=== PATIENT | female | born 1965 | race Hispanic/Latino ===

== ENCOUNTER 2018-01-23 12:38 | Emergency (ER) | payer OTHER ==
[2018-01-23] MEDS ORDERED: ONDANSETRON HCL 4 MG/2 ML VIAL ONE (12:52)
[2018-01-23] MEDS ORDERED: KETOROLAC TROMETHAMINE 15MG/ML ONE (12:53)
[2018-01-23] MEDS ORDERED: DICYCLOMINE HCL 10 MG/ML 2ML AMP IM ONE (12:53)
[2018-01-23] MEDS ORDERED: SODIUM CHLORIDE 0.9% 1000ML 1,000 ML IV ONE (12:53)
[2018-01-23 13:08] LABS: BASOPHILS % (AUTO) 0.3 % (0.0-5.0); EOSINOPHILS % (AUTO) 1.2 % (0.0-8.0); HEMATOCRIT 47.5 % (36-48); LYMPHOCYTES % (AUTO) 14.4 % (21.0-51.0); MEAN CORPUSCULAR HEMOGLOBIN 30.2 pg (27.0-33.0); MEAN CORPUSCULAR HGB CONC 33.8 g/dL (32.0-36.0); MEAN CORPUSCULAR VOLUME 89.5 fL (79-99); MONOCYTES % (AUTO) 6.2 % (3.0-13.0); NEUTROPHILS % (AUTO) 77.9 % (40.0-77.0); PLATELET COUNT (AUTO) 252 K/uL (130-400); RED BLOOD CELL COUNT(AUTO) 5.31 MIL/uL (4.00-5.50); RED CELL DISTRIBUTION WIDTH 13.4 % (11.0-15.5); WHITE BLOOD COUNT (AUTO) 12.1 K/uL (4.8-10.8)
[2018-01-23 13:23] LABS: CREATININE 0.8 mg/dL (0.5-1.5); POTASSIUM 3.9 mmol/L (3.5-5.1)
[2018-01-23 13:27] LABS: ALBUMIN 3.5 g/dL (3.5-5.0); BILIRUBIN,TOTAL 0.5 mg/dL (0.2-1.0); MAGNESIUM 1.8 mg/dL (1.80-2.40); TOTAL PROTEIN, SERUM 7.5 g/dL (6.0-8.3)
[2018-01-23] MEDS ORDERED: FAMOTIDINE/PF 20 MG/2 ML VIAL IV ONE (14:09)
== END 2018-01-23 15:15 | disposition home or self-care (01) ==
LOC: EDH 12:38
DX: R11.2 Nausea with vomiting, unspecified (principal); R19.7 Diarrhea, unspecified; R10.9 Unspecified abdominal pain; Z72.0 Tobacco use; Z87.442 Personal history of urinary calculi
CPT/HCPCS: 36415; 76705; 80053; 83690; 83735; 85025; 96361; 96372; 96374; 96375; 99285; J0500; J1885; J2405; J3490; J7030

== ENCOUNTER 2025-02-20 22:48 | Emergency (ER) | payer OTHER ==
[~2025-02-20] VITALS: Ht 165.1 cm; Wt 99.8 kg
[2025-02-20 22:53] VITALS: BP 187/101; PULSE 75; RESP 19; TEMP 98.3
[2025-02-20 23:15] LABS: HEMATOCRIT 39.9 % (36-48); MEAN CORPUSCULAR HEMOGLOBIN 30.2 pg (27.0-33.0); MEAN CORPUSCULAR HGB CONC 34.1 g/dL (32.0-36.0); MEAN CORPUSCULAR VOLUME 88.5 fL (79-99); PLATELET COUNT (AUTO) 252 K/uL (130-400); RED BLOOD CELL COUNT(AUTO) 4.51 MIL/uL (4.00-5.50); RED CELL DISTRIBUTION WIDTH 13.5 % (11.0-15.5); WHITE BLOOD COUNT (AUTO) 9.6 K/uL (4.8-10.8)
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
[2025-02-20 23:22] LABS: CREATININE 0.9 mg/dL (0.5-1.0); POTASSIUM 3.5 mmol/L (3.5-5.1)
[2025-02-20] MEDS: ondanSETRON 4MG INJ IVP ONE (23:26)
[2025-02-20] MEDS: acetaMINOPHEN 500 MG TABLET PO ONE (23:26)
[2025-02-20] MEDS: ketOROlac 30MG VIAL (30MG/ML) IM ONE (23:26)
[2025-02-20 23:27] LABS: ALBUMIN 3.6 g/dL (3.5-5.0); BILIRUBIN,TOTAL 0.2 mg/dL (0.2-1.0); TOTAL PROTEIN, SERUM 7.4 g/dL (6.0-8.3)
[2025-02-20 23:45] LABS: LYMPHOCYTES % (MANUAL) 46 % (22-44); MONOCYTES % (MANUAL) 4 % (2-9); SEGMENTED NEUTROPHILS % 50 % (40-70); TOTAL CELLS COUNTED 100
[2025-02-20 23:46] LABS: MAN.DIFF COMMENT-IMPRESSION MANUAL DIFFERENTIAL
--- NOTE | 2025-02-21 00:11 | HMCIMG ---
CT HEAD/BRAIN W/O CONTRAST HISTORY: [facility] COMPARISON: None TECHNIQUE: Multiple sequential axial images of the head were obtained from the base of the skull through vertex. Patient was not given contrast through intravenous route. FINDINGS: The ventricles and extraventricular CSF spaces are nondilated for patient's age. There is no midline shift, mass effect or herniation. No acute intracranial bleed is seen. Visualized portion of the paranasal sinuses are grossly within normal limits. IMPRESSION: 1. No acute intracranial bleed is seen. CT was performed with one or more following dose reduction techniques: automated exposure control, adjustment of the mA and kv according to patient's size, or use of a iterative reconstruction technique.
--- NOTE | 2025-02-21 00:17 | HMCIMG ---
CT CERVICAL SPINE W/O CONTRAST HISTORY: [facility] COMPARISON: None TECHNIQUE: Multiple sequential axial images of the cervical spine were obtained including post processing sagittal and coronal reconstruction images. Patient was not given contrast through intravenous route. FINDINGS: There are degenerative changes of cervical spine spondylosis. Disc space narrowings are seen at C5-6 and C6-7 level. Spondylotic discs are seen at C5-6 and C6-7 levels causing central canal narrowing. There is straightening of normal lordotic cervical curvature which may be related to muscle spasm or positioning. There is no loss of vertebral height. Evaluation for disc and cord pathology is limited with CT study. No evidence of fracture or dislocation is seen. IMPRESSION: 1. No fracture is seen. CT was performed with one or more following dose reduction techniques: automated exposure control, adjustment of the mA and kv according to patient's size, or use of a iterative reconstruction technique.
--- NOTE | 2025-02-21 00:27 | HMCIMG ---
CT CHEST/ABD/PELV W/O CONTRAST HISTORY: [facility] COMPARISON: None TECHNIQUE: Multiple sequential axial images of the chest were obtained from the thoracic inlet through upper abdomen. Patient was not given contrast through intravenous route. FINDINGS: There is no evidence of pulmonary nodule or parenchymal disease. No pleural effusion or pericardial effusion is seen. There is no evidence of pneumothorax. There are normal size mediastinal and hilar lymph nodes. The heart is not enlarged. Degenerative changes of the thoracolumbar spine are present. There is no evidence of adrenal nodule. IMPRESSION: 1. No evidence of pulmonary nodule or effusion is seen. CT CHEST/ABD/PELV W/O CONTRAST HISTORY: [facility] COMPARISON: None TECHNIQUE: Multiple sequential axial images of the abdomen and pelvis were obtained from the dome of the diaphragm through symphysis pubis. Patient was not given contrast through intravenous route. Oral contrast was not given. FINDINGS: The liver, spleen, adrenal glands and pancreas are unremarkable. There is no evidence of hydronephrosis bilaterally. No evidence of renal stone is seen. Fecal material is seen in the colon. There are normal size retroperitoneal and mesenteric lymph nodes. No ascites is seen. No CT evidence of acute appendicitis is seen. Pelvic sidewalls are symmetric bilaterally. The bladder is poorly distended. IMPRESSION: 1. No acute findings. CT was performed with one or more following dose reduction techniques: automated exposure control, adjustment of the mA and kv according to patient's size, or use of a iterative reconstruction technique.
[2025-02-21] MEDS ORDERED: CYCL10TA16 PO (01:23)
--- NOTE | 2025-02-21 06:40 | EKG ---
[facility] Test Date: 2025-02-20 Test Time: 23:15:44 Pat Name: BRENTON TELLO Department: ED Room: Gender: F [employer] Engineer: [id number] : 1965 Requested By: JORDAN CABRERA Order Number: [id number] Reading MD: Olaf Levine Measurements Intervals Ruth Rate: 74 P: 6 VA: 181 QRS: 14 QRSD: 101 T: -13 QT: 396 QTc: 439 Interpretive Statements Sinus rhythm No previous ECG available for comparison Electronically Signed On 02-21-2025 15:09:28 CDT by Olaf Levine Please click the below link to view image of tracing.
== END 2025-02-21 01:35 | disposition home or self-care (01) ==
LOC: EDH 22:48
DX: R51.9 Headache, unspecified (principal); R10.84 Generalized abdominal pain; R11.0 Nausea; I10 Essential (primary) hypertension; V43.52XA Car driver injured in collision with other type car in traffic accident, initial encounter; Y93.89 Activity, other specified; Y92.89 Other specified places as the place of occurrence of the external cause; Y99.8 Other external cause status
CPT/HCPCS: 99285; 70450; 96374; 80053; 85025; 36415; 72125; 71250; 74176; 93005; 96372; J1885; J2405; 99291